=== PATIENT | female | born 1980 | race Caucasian/White ===

== ENCOUNTER 2021-03-18 10:36 | Emergency (ER) | payer SELFPAY ==
[~2021-03-18] VITALS: Ht 175.3 cm; Wt 86.2 kg
[2021-03-18 10:36] VITALS: BP_SYST 109
--- NOTE | 2021-03-18 10:36 | NUR ---
BROUGHT TO OUTSIDE TRIAGE TENT AND TRIAGED. WILL ASSUME CARE
--- NOTE | 2021-03-18 10:52 | NUR ---
DR GOMES OUT TO OUTSIDE TENT FOR EVALUATION
--- NOTE | 2021-03-18 11:07 | NUR ---
Deya barnett in ED - 03/18/21 at [address] GOMES AT [facility] FOR EVALUATION
--- NOTE | 2021-03-18 11:10 | NUR ---
PT STATES SHE HAD A HOUSEFULL OF PEOPLE WHO ARE +COVID AND NOW SHE HAS SYMPTOMS. PT REQUESTING A TEST
[2021-03-18] MEDS ORDERED: PRED20TA PO (11:55)
[2021-03-18] MEDS ORDERED: PSEU30TA36 PO (11:55)
[2021-03-18] MEDS ORDERED: ALBU8.5H8 INH (11:55)
[2021-03-18 12:28] VITALS: BP_SYST 112
--- NOTE | 2021-03-18 12:30 | NUR ---
Patient given written and verbal discharge instructions and verbalizes understanding. ER MD discussed with patient the results and treatment provided. Patient in stable condition. ID arm band removed. Rx of PROAIR HFA, PREDNISONE, SUDAFED given. Patient educated on pain management and to follow up with PMD. Pain Scale 0/10. Opportunity for questions provided and answered. Medication side effect fact sheet provided.
== END 2021-03-18 12:28 | disposition home or self-care (01) ==
LOC: SED 10:36
DX: U07.1 COVID-19 (principal); J40 Bronchitis, not specified as acute or chronic
CPT/HCPCS: 36415; 71045; 99284